=== PATIENT | female | born 1970 | race Caucasian/White ===

== ENCOUNTER 2021-12-26 08:26 | Inpatient (IN) | payer MEDICARE, BC ==
[2021-12-26] MEDS ORDERED: methylPREDNISolone Sod Succ/PF 125 MG/2 ML VIAL ONE (08:35)
[2021-12-26] MEDS ORDERED: Magnesium 2 GM/50 ML BAG (IN WATER) ONE (08:35)
[2021-12-26] MEDS ORDERED: Albuterol Sulfate 2.5 mg/3 ml Neb ONE ×2 (08:39→09:52)
[2021-12-26 08:46] LABS: Analyzer IN Cardio ER; Base Excess (BEa) 21.8 mEq/L (-2.0 to +3.0); Calcium, Ionized (arterial) 1.14 mmol/L (1.12-1.30); Carboxyhemoglobin (COHb) 0.6 gm% (0.0-3.0); Hemoglobin (Hb) 11.9 g/dL (12.0-16.0); O2 Tension (PaO2), arterial 193.3 mmHg (80.0-100.0); Potassium - ABG Lab 4.46 mmol/L (3.70-5.30)
[2021-12-26] MEDS ORDERED: Rocuronium Bromide 10 MG/ML (10ML VIAL) ONE (08:46)
[2021-12-26 08:47] LABS: CO2 Tension 132.2 mmHg (35.0-45.0); Puncture Site LRA; pH, Arterial 7.24 (7.35-7.45)
[2021-12-26 08:51] LABS: #Lymphocytes 0.4 thou/uL (1.20-3.40); #Monocytes 0.7 thou/uL (0.11-0.59); #Neutrophils 9.9 thou/uL (1.40-6.50); %Eosinophils 0.2 % (0.0-10.0); %Lymphocytes 3.3 % (21.0-51.0); %Monocytes 6.2 % (0.0-10.0); %Neutrophils 90.3 % (42.0-75.0); Hemoglobin 11.3 g/dL (12.0-16.0); Mean Corpuscular HGB CONC 31.1 g/dL (32.0-36.0); Mean Corpuscular Hemoglobin 30.1 pg (27.0-31.0); Mean Corpuscular Volume 96.8 fL (78.0-98.0); Mean Platelet Volume 5.1 fL (7.4-10.4); Platelet Count 265 thou/uL (130-400); RBC Distribution Width 12.7 % (11.5-14.5); Red Blood Cell (RBC) Count 3.76 mill/uL (4.20-5.40); White Blood Cell (WBC) Count 10.9 thou/uL (4.8-10.8)
[2021-12-26 09:12] LABS: ALT (SGPT) 24 U/L (8-55); AST (SGOT) 23 U/L (5-34); Albumin 3.3 g/dL (3.5-5.0); Alkaline Phosphatase 185 U/L (40-110); BUN (Urea Nitrogen) 5 mg/dL (9.8-20.1); Bilirubin, Total 0.2 mg/dL (0.2-1.2); Calc. Creatinine Clearance 0 mL/min (70-130); Globulin 3.5 g/dL (2.4-3.5); Glucose 133 mg/dL (70-105); Protein, Total 6.8 g/dL (6.0-8.3)
[2021-12-26 09:15] LABS: Actual Bicarbonate (HCO3a) 43.1 mEq/L (22-28); Analyzer IN Cardio ER; CO2 Tension 59.2 mmHg (35.0-45.0); Calcium, Ionized (arterial) 1.09 mmol/L (1.12-1.30); Carboxyhemoglobin (COHb) 0.4 gm% (0.0-3.0); Hemoglobin (Hb) 11.3 g/dL (12.0-16.0); Potassium - ABG Lab 4.55 mmol/L (3.70-5.30); pH, Arterial 7.48 (7.35-7.45)
[2021-12-26 09:17] LABS: Puncture Site RRA
[2021-12-26] MEDS ORDERED: Fentanyl 100 MCG/2 ML VIAL ONE ×2 (09:20→09:41)
[2021-12-26 09:21] LABS: Anion Gap 16 mmol/L (10-20); Chloride 79 mmol/L (98-107); Potassium 4.7 mmol/L (3.5-5.1); Sodium 131 mmol/L (136-145)
[2021-12-26 09:24] LABS: Carbon Dioxide 41 mmol/L (22-29)
[2021-12-26] MEDS ORDERED: Propofol 1,000 MG/100 ML VIAL IV ONE (09:24)
[2021-12-26] MEDS ORDERED: fentaNYL Citrate/PF 2,000 MCG in Sodium Chloride 0.9% 60 ML IV SCH (09:30)
[2021-12-26 09:36] LABS: CKMB 8.1 ng/mL (0-6.6)
[2021-12-26 10:50] LABS: SARS-CoV-2 NAA Rapid Test Not Detected (NotDetected)
[2021-12-26] MEDS ORDERED: Cefepime 2 GM VIAL ONE (11:19)
[2021-12-26] MEDS ORDERED: Albuterol Sulfate 2.5 mg/3 ml Neb NEB PRN (12:00)
[2021-12-26] MEDS ORDERED: Ventilator Sedation Protocol 1 EACH FS SCH (12:00)
[2021-12-26] MEDS ORDERED: methylPREDNISolone Sod Succ 40 MG VIAL IVP SCH (12:00)
[2021-12-26] MEDS ORDERED: Vancomycin HCl 1.75 GM in Sodium Chloride 0.9% 500 ML IVPB SCH (12:00)
[2021-12-26] MEDS ORDERED: Fentanyl BOLUS 250 ML IVPB PRN ×3 (12:13→12:15)
[2021-12-26] MEDS ORDERED: DISCONTINUE PREVIOUS NARCOTIC PAIN MEDICATIONS AND BENZODIAZEPINES FS SCH (12:15)
[2021-12-26] MEDS ORDERED: Morphine 2 MG/ML VIAL SLOW IVP PRN (12:15)
[2021-12-26] MEDS ORDERED: Fentanyl CADD 100 ML IV SCH (12:15)
[2021-12-26] MEDS ORDERED: Morphine 4 MG/ML VIAL SLOW IVP PRN (12:15)
[2021-12-26] MEDS ORDERED: Propofol BOLUS 1,000 MG/100 ML VIAL IV PRN (12:15)
[2021-12-26] MEDS: Azithromycin 500 MG in Sodium Chloride 0.9% 250 ML 250 ML IVPB SCH (13:07)
[2021-12-26 13:21] LABS: Troponin I 0.043 ng/mL (< 0.028)
[2021-12-26] MEDS: methylPREDNISolone Sod Succ 40 MG VIAL IVP SCH ×2 (15:18→21:53)
[2021-12-26 15:29] LABS: Troponin I 0.036 ng/mL (< 0.028)
[2021-12-26] MEDS: carBAMazepine 200 MG TAB PO SCH (18:20)
[2021-12-26] MEDS: Mometasone 200 MCG/Formoterol 5 MCG 120 PUFF INHALER INH SCH (18:47)
[2021-12-26] MEDS ORDERED: Vancomycin 1 GM in Premix Bag 1 BAG IVPB SCH (21:00)
[2021-12-26] MEDS: Cefepime 1 GM in Sodium Chloride 0.9% 100 ML IVPB SCH (21:52)
[2021-12-26] MEDS: Propofol 1,000 MG/100 ML VIAL IV PRN (21:53)
[2021-12-26] MEDS: Heparin 5,000 UNITS/ML VIAL SC SCH (21:53)
[2021-12-26] MEDS ORDERED: Vancomycin HCl 1.5 GM in Sodium Chloride 0.9% 250 ML 300 ML IVPB SCH (23:59)
[2021-12-27] MEDS ORDERED: Sodium Chloride 0.9% 1,000 ML IV SCH (01:15)
[2021-12-27 04:32] LABS: ALT (SGPT) 17 U/L (8-55); AST (SGOT) 19 U/L (5-34); Albumin 2.7 g/dL (3.5-5.0); Alkaline Phosphatase 124 U/L (40-110); BUN (Urea Nitrogen) 12 mg/dL (9.8-20.1); Bilirubin, Total 0.2 mg/dL (0.2-1.2); Calc. Creatinine Clearance 127 mL/min (70-130); Calcium 8.7 mg/dL (7.8-10.44); Globulin 2.6 g/dL (2.4-3.5); Glucose 127 mg/dL (70-105); Magnesium 1.8 mg/dL (1.6-2.6); Protein, Total 5.3 g/dL (6.0-8.3)
[2021-12-27 04:41] LABS: Chloride 86 mmol/L (98-107)
[2021-12-27 04:42] LABS: Potassium 4.9 mmol/L (3.5-5.1); Sodium 132 mmol/L (136-145)
[2021-12-27 04:44] LABS: Anion Gap 11 mmol/L (10-20); Carbon Dioxide 40 mmol/L (22-29)
[2021-12-27] MEDS: methylPREDNISolone Sod Succ 40 MG VIAL IVP SCH ×3 (05:36→21:46)
[2021-12-27] MEDS: Mometasone 200 MCG/Formoterol 5 MCG 120 PUFF INHALER INH SCH ×2 (06:23→19:08)
[2021-12-27 07:56] LABS: Hemoglobin 9.3 g/dL (12.0-16.0); Mean Corpuscular HGB CONC 32.7 g/dL (32.0-36.0); Mean Corpuscular Hemoglobin 31.7 pg (27.0-31.0); Mean Corpuscular Volume 96.9 fL (78.0-98.0); Mean Platelet Volume 5.6 fL (7.4-10.4); Platelet Count 229 thou/uL (130-400); RBC Distribution Width 12.8 % (11.5-14.5); Red Blood Cell (RBC) Count 2.93 mill/uL (4.20-5.40); White Blood Cell (WBC) Count 8.9 thou/uL (4.8-10.8)
[2021-12-27 08:08] LABS: Base Excess (BEa) 15.7 mEq/L (-2.0 to +3.0); Calcium, Ionized (arterial) 1.09 mmol/L (1.12-1.30); Carboxyhemoglobin (COHb) 0.7 gm% (0.0-3.0); Hemoglobin (Hb) 9.5 g/dL (12.0-16.0); pH, Arterial 7.44 (7.35-7.45)
[2021-12-27 08:13] LABS: CO2 Tension 62.8 mmHg (35.0-45.0); Puncture Site RRA
[2021-12-27] MEDS ORDERED: Sodium Chloride 0.9% 500 ML IV SCH (08:45)
[2021-12-27] MEDS: Propofol 1,000 MG/100 ML VIAL IV PRN ×2 (08:59→16:58)
[2021-12-27] MEDS: Pantoprazole 40 MG VIAL IVP SCH (09:00)
[2021-12-27] MEDS ORDERED: Nebivolol HCl 5 MG TAB PO SCH (09:00)
[2021-12-27] MEDS: Cefepime 1 GM in Sodium Chloride 0.9% 100 ML IVPB SCH (09:00)
[2021-12-27] MEDS: Heparin 5,000 UNITS/ML VIAL SC SCH ×2 (09:01→21:45)
[2021-12-27] MEDS: carBAMazepine 200 MG TAB PO SCH ×2 (09:02→19:04)
[2021-12-27] MEDS: Amiodarone 200 MG TAB PO SCH (09:04)
[2021-12-27 09:12] LABS: Band 8 % (5-11); Eosinophils 1 % (0-10); Lymphocytes 10 % (21-51); MDiff Complete? YES; Monocytes 6 % (0-10); Neutrophil 75 % (42-75); Platelet Morphology Comment Appears Adequate; Polychromasia SLIGHT = 2-3 cells (100X) (0-2/hpf)
[2021-12-27] MEDS: NIFEdipine XL 60 MG TAB PO SCH (09:46)
[2021-12-27] MEDS: Azithromycin 500 MG in Sodium Chloride 0.9% 250 ML 250 ML IVPB SCH (12:14)
[2021-12-27] MEDS: Vancomycin HCl 1.25 GM in Sodium Chloride 0.9% 250 ML 250 ML IVPB SCH (12:14)
[2021-12-27] MEDS: Cefepime 2 GM in Sodium Chloride 0.9% 100 ML IVPB SCH (21:45)
[2021-12-28] MEDS: Vancomycin HCl 1.25 GM in Sodium Chloride 0.9% 250 ML 250 ML IVPB SCH ×3 (00:34→23:07)
[2021-12-28] MEDS: Propofol 1,000 MG/100 ML VIAL IV PRN ×2 (00:48→21:53)
[2021-12-28 04:47] LABS: ALT (SGPT) 19 U/L (8-55); AST (SGOT) 20 U/L (5-34); Albumin 2.8 g/dL (3.5-5.0); Alkaline Phosphatase 133 U/L (40-110); Anion Gap 12 mmol/L (10-20); BUN (Urea Nitrogen) 18 mg/dL (9.8-20.1); Bilirubin, Total 0.2 mg/dL (0.2-1.2); Calc. Creatinine Clearance 132 mL/min (70-130); Calcium 8.7 mg/dL (7.8-10.44); Carbon Dioxide 36 mmol/L (22-29); Chloride 91 mmol/L (98-107); Globulin 2.9 g/dL (2.4-3.5); Glucose 140 mg/dL (70-105); Magnesium 1.9 mg/dL (1.6-2.6); Potassium 4.4 mmol/L (3.5-5.1); Protein, Total 5.7 g/dL (6.0-8.3); Sodium 135 mmol/L (136-145)
[2021-12-28 05:10] LABS: Band 5 % (5-11); Hemoglobin 10.1 g/dL (12.0-16.0); Lymphocytes 3 % (21-51); MDiff Complete? YES; Mean Corpuscular HGB CONC 32.5 g/dL (32.0-36.0); Mean Corpuscular Hemoglobin 31.6 pg (27.0-31.0); Mean Corpuscular Volume 97.2 fL (78.0-98.0); Mean Platelet Volume 5.6 fL (7.4-10.4); Monocytes 3 % (0-10); Neutrophil 89 % (42-75); Platelet Count 187 thou/uL (130-400); Red Blood Cell (RBC) Count 3.19 mill/uL (4.20-5.40); White Blood Cell (WBC) Count 4.5 thou/uL (4.8-10.8)
[2021-12-28] MEDS: methylPREDNISolone Sod Succ 40 MG VIAL IVP SCH ×3 (06:24→21:20)
[2021-12-28] MEDS: Mometasone 200 MCG/Formoterol 5 MCG 120 PUFF INHALER INH SCH ×2 (06:58→18:50)
[2021-12-28] MEDS: Amiodarone 200 MG TAB PO SCH (09:18)
[2021-12-28] MEDS: NIFEdipine XL 60 MG TAB PO SCH (09:18)
[2021-12-28] MEDS: carBAMazepine 200 MG TAB PO SCH ×2 (09:18→17:59)
[2021-12-28] MEDS: Cefepime 2 GM in Sodium Chloride 0.9% 100 ML IVPB SCH ×2 (09:19→21:21)
[2021-12-28] MEDS: Pantoprazole 40 MG VIAL IVP SCH (09:19)
[2021-12-28] MEDS: Heparin 5,000 UNITS/ML VIAL SC SCH ×2 (09:19→21:20)
[2021-12-28] MEDS: Lorazepam 2 MG/ML VIAL SLOW IVP PRN (10:09)
[2021-12-28] MEDS: Azithromycin 500 MG in Sodium Chloride 0.9% 250 ML 250 ML IVPB SCH (11:59)
[2021-12-28] MEDS: busPIRone HCl 5 MG TAB PER TUBE SCH ×2 (15:21→21:20)
[2021-12-28] MEDS: carBAMazepine 20 MG/ML ORAL SUSP PER TUBE SCH (17:58)
[2021-12-28 23:53] LABS: Vancomycin, Trough 24.2 ug/mL
[2021-12-29] MEDS: Lorazepam 2 MG/ML VIAL SLOW IVP PRN ×2 (02:03→20:53)
[2021-12-29 04:56] LABS: ALT (SGPT) 16 U/L (8-55); AST (SGOT) 16 U/L (5-34); Albumin 2.8 g/dL (3.5-5.0); Alkaline Phosphatase 116 U/L (40-110); Anion Gap 10 mmol/L (10-20); BUN (Urea Nitrogen) 19 mg/dL (9.8-20.1); Bilirubin, Total 0.2 mg/dL (0.2-1.2); Calc. Creatinine Clearance 131 mL/min (70-130); Calcium 8.5 mg/dL (7.8-10.44); Carbon Dioxide 36 mmol/L (22-29); Chloride 91 mmol/L (98-107); Globulin 2.6 g/dL (2.4-3.5); Glucose 122 mg/dL (70-105); Magnesium 1.9 mg/dL (1.6-2.6); Potassium 4.1 mmol/L (3.5-5.1); Protein, Total 5.4 g/dL (6.0-8.3); Sodium 133 mmol/L (136-145)
[2021-12-29] MEDS: methylPREDNISolone Sod Succ 40 MG VIAL IVP SCH ×3 (05:09→20:53)
[2021-12-29 05:34] LABS: Band 9 % (5-11); Hemoglobin 10.5 g/dL (12.0-16.0); Lymphocytes 6 % (21-51); MDiff Complete? YES; Mean Corpuscular HGB CONC 32.9 g/dL (32.0-36.0); Mean Corpuscular Volume 97.4 fL (78.0-98.0); Mean Platelet Volume 5.9 fL (7.4-10.4); Monocytes 5 % (0-10); Neutrophil 80 % (42-75); Platelet Count 153 thou/uL (130-400); RBC Distribution Width 13.1 % (11.5-14.5); Red Blood Cell (RBC) Count 3.29 mill/uL (4.20-5.40); White Blood Cell (WBC) Count 3.2 thou/uL (4.8-10.8)
[2021-12-29] MEDS ORDERED: Vancomycin 1 GM in Premix Bag 1 BAG IVPB SCH (06:00)
[2021-12-29] MEDS: Propofol 1,000 MG/100 ML VIAL IV PRN ×3 (06:00→23:35)
[2021-12-29] MEDS: Mometasone 200 MCG/Formoterol 5 MCG 120 PUFF INHALER INH SCH ×2 (07:11→19:06)
[2021-12-29] MEDS: Amiodarone 200 MG TAB PO SCH ×2 (08:16→09:41)
[2021-12-29] MEDS: NIFEdipine XL 60 MG TAB PO SCH (09:38)
[2021-12-29] MEDS: Atorvastatin Calcium 20 MG TAB PER TUBE SCH (09:41)
[2021-12-29] MEDS: Heparin 5,000 UNITS/ML VIAL SC SCH ×2 (09:41→20:49)
[2021-12-29] MEDS: Cefepime 2 GM in Sodium Chloride 0.9% 100 ML IVPB SCH (09:41)
[2021-12-29] MEDS: carBAMazepine 20 MG/ML ORAL SUSP PER TUBE SCH ×2 (09:42→20:52)
[2021-12-29] MEDS: Amiodarone 200 MG TAB PER TUBE SCH (09:45)
[2021-12-29] MEDS: Lansoprazole 3 MG/ML ORAL SUSPENSION PER TUBE SCH (09:55)
[2021-12-29] MEDS: busPIRone HCl 5 MG TAB PER TUBE SCH ×3 (09:55→20:49)
[2021-12-29] MEDS: Azithromycin 500 MG in Sodium Chloride 0.9% 250 ML 250 ML IVPB SCH (11:26)
[2021-12-29] MEDS: Scopolamine 1.5 mg/72 hour Patch TOP SCH (11:28)
[2021-12-29] MEDS ORDERED: Labetalol HCl 100 MG/20 ML VIAL SLOW IVP PRN (11:41)
[2021-12-30] MEDS: methylPREDNISolone Sod Succ 40 MG VIAL IVP SCH ×3 (05:05→21:01)
[2021-12-30 05:59] LABS: Band 4 % (5-11); Hemoglobin 9.2 g/dL (12.0-16.0); Lymphocytes 3 % (21-51); MDiff Complete? YES; Mean Corpuscular HGB CONC 32.4 g/dL (32.0-36.0); Mean Corpuscular Hemoglobin 31.6 pg (27.0-31.0); Mean Corpuscular Volume 97.6 fL (78.0-98.0); Mean Platelet Volume 5.4 fL (7.4-10.4); Monocytes 10 % (0-10); Neutrophil 83 % (42-75); Platelet Count 175 thou/uL (130-400); RBC Distribution Width 12.8 % (11.5-14.5); White Blood Cell (WBC) Count 4.2 thou/uL (4.8-10.8)
[2021-12-30 06:10] LABS: ALT (SGPT) 12 U/L (8-55); AST (SGOT) 14 U/L (5-34); Albumin 3.1 g/dL (3.5-5.0); Alkaline Phosphatase 118 U/L (40-110); Anion Gap 11 mmol/L (10-20); BUN (Urea Nitrogen) 18 mg/dL (9.8-20.1); Bilirubin, Total 0.2 mg/dL (0.2-1.2); Calc. Creatinine Clearance 144 mL/min (70-130); Calcium 8.8 mg/dL (7.8-10.44); Carbon Dioxide 37 mmol/L (22-29); Chloride 94 mmol/L (98-107); Globulin 2.5 g/dL (2.4-3.5); Glucose 106 mg/dL (70-105); Potassium 4.1 mmol/L (3.5-5.1); Protein, Total 5.6 g/dL (6.0-8.3); Sodium 138 mmol/L (136-145)
[2021-12-30] MEDS: Mometasone 200 MCG/Formoterol 5 MCG 120 PUFF INHALER INH SCH ×2 (06:45→19:33)
[2021-12-30] MEDS: Atorvastatin Calcium 20 MG TAB PER TUBE SCH (08:53)
[2021-12-30] MEDS: Heparin 5,000 UNITS/ML VIAL SC SCH ×2 (08:54→21:00)
[2021-12-30] MEDS: Leflunomide 10 mg Tablet PO SCH (08:54)
[2021-12-30] MEDS: carBAMazepine 20 MG/ML ORAL SUSP PER TUBE SCH ×2 (08:55→21:01)
[2021-12-30] MEDS: Lansoprazole 3 MG/ML ORAL SUSPENSION PER TUBE SCH (08:55)
[2021-12-30] MEDS: busPIRone HCl 5 MG TAB PER TUBE SCH ×3 (08:55→21:01)
[2021-12-30] MEDS: Amiodarone 200 MG TAB PER TUBE SCH (08:56)
[2021-12-30] MEDS ORDERED: Amlodipine 5 MG TAB PER TUBE SCH (14:30)
[2021-12-30] MEDS: Saccharomyces boulardii 250 MG CAP PER TUBE SCH (14:47)
[2021-12-30] MEDS: NIFEdipine XL 60 MG TAB PO SCH (17:33)
[2021-12-30] MEDS: Lorazepam 2 MG/ML VIAL SLOW IVP PRN (19:48)
[2021-12-31] MEDS: Propofol 1,000 MG/100 ML VIAL IV PRN (02:44)
[2021-12-31] MEDS: methylPREDNISolone Sod Succ 40 MG VIAL IVP SCH ×3 (06:03→21:03)
[2021-12-31 06:52] LABS: Band 7 % (5-11); Hemoglobin 9.1 g/dL (12.0-16.0); Lymphocytes 12 % (21-51); MDiff Complete? YES; Mean Corpuscular HGB CONC 32.4 g/dL (32.0-36.0); Mean Corpuscular Hemoglobin 31.7 pg (27.0-31.0); Mean Corpuscular Volume 98.1 fL (78.0-98.0); Mean Platelet Volume 5.7 fL (7.4-10.4); Monocytes 5 % (0-10); Neutrophil 76 % (42-75); Platelet Count 157 thou/uL (130-400); Platelet Morphology Comment Appears Adequate; RBC Distribution Width 12.8 % (11.5-14.5); Red Blood Cell (RBC) Count 2.85 mill/uL (4.20-5.40); White Blood Cell (WBC) Count 3.2 thou/uL (4.8-10.8)
[2021-12-31 06:57] LABS: ALT (SGPT) 14 U/L (8-55); AST (SGOT) 16 U/L (5-34); Albumin 2.8 g/dL (3.5-5.0); Alkaline Phosphatase 107 U/L (40-110); Anion Gap 11 mmol/L (10-20); BUN (Urea Nitrogen) 19 mg/dL (9.8-20.1); Bilirubin, Total 0.3 mg/dL (0.2-1.2); Calc. Creatinine Clearance 151 mL/min (70-130); Calcium 8.7 mg/dL (7.8-10.44); Carbon Dioxide 34 mmol/L (22-29); Chloride 94 mmol/L (98-107); Globulin 2.6 g/dL (2.4-3.5); Glucose 108 mg/dL (70-105); Potassium 4.5 mmol/L (3.5-5.1); Protein, Total 5.4 g/dL (6.0-8.3); Sodium 134 mmol/L (136-145)
[2021-12-31] MEDS: Mometasone 200 MCG/Formoterol 5 MCG 120 PUFF INHALER INH SCH ×2 (07:24→19:05)
[2021-12-31] MEDS: Amiodarone 200 MG TAB PER TUBE SCH ×2 (10:52→10:53)
[2021-12-31] MEDS: Lansoprazole 3 MG/ML ORAL SUSPENSION PER TUBE SCH (10:52)
[2021-12-31] MEDS: Amlodipine 5 MG TAB PER TUBE SCH (10:52)
[2021-12-31] MEDS: busPIRone HCl 5 MG TAB PER TUBE SCH ×3 (10:52→21:03)
[2021-12-31] MEDS: Leflunomide 10 mg Tablet PO SCH (10:52)
[2021-12-31] MEDS: Heparin 5,000 UNITS/ML VIAL SC SCH ×2 (10:53→21:03)
[2021-12-31] MEDS: Atorvastatin Calcium 20 MG TAB PER TUBE SCH (10:55)
[2021-12-31] MEDS: Saccharomyces boulardii 250 MG CAP PER TUBE SCH (10:56)
[2021-12-31] MEDS: carBAMazepine 20 MG/ML ORAL SUSP PER TUBE SCH ×2 (10:58→21:02)
[2022-01-01 04:11] LABS: Hemoglobin 9.3 g/dL (12.0-16.0); Hypochromia SLIGHT = 6-15 cells (100X) (0-5/hpf); Lymphocytes 13 % (21-51); MDiff Complete? YES; Mean Corpuscular HGB CONC 33.2 g/dL (32.0-36.0); Mean Corpuscular Volume 96.2 fL (78.0-98.0); Monocytes 6 % (0-10); Neutrophil 81 % (42-75); Platelet Count 148 thou/uL (130-400); Platelet Morphology Comment Appears Adequate; RBC Distribution Width 12.7 % (11.5-14.5); Red Blood Cell (RBC) Count 2.92 mill/uL (4.20-5.40); White Blood Cell (WBC) Count 3.9 thou/uL (4.8-10.8)
[2022-01-01 04:20] LABS: ALT (SGPT) 11 U/L (8-55); AST (SGOT) 14 U/L (5-34); Albumin 3.1 g/dL (3.5-5.0); Alkaline Phosphatase 105 U/L (40-110); Anion Gap 10 mmol/L (10-20); BUN (Urea Nitrogen) 17 mg/dL (9.8-20.1); Bilirubin, Total 0.3 mg/dL (0.2-1.2); Calc. Creatinine Clearance 151 mL/min (70-130); Calcium 8.7 mg/dL (7.8-10.44); Carbon Dioxide 34 mmol/L (22-29); Chloride 93 mmol/L (98-107); Globulin 2.3 g/dL (2.4-3.5); Glucose 116 mg/dL (70-105); Potassium 4.4 mmol/L (3.5-5.1); Protein, Total 5.4 g/dL (6.0-8.3); Sodium 133 mmol/L (136-145)
[2022-01-01] MEDS: methylPREDNISolone Sod Succ 40 MG VIAL IVP SCH ×3 (05:38→21:12)
[2022-01-01] MEDS: Mometasone 200 MCG/Formoterol 5 MCG 120 PUFF INHALER INH SCH ×2 (07:51→19:31)
[2022-01-01] MEDS: Saccharomyces boulardii 250 MG CAP PER TUBE SCH (08:50)
[2022-01-01] MEDS: carBAMazepine 20 MG/ML ORAL SUSP PER TUBE SCH ×2 (08:50→21:12)
[2022-01-01] MEDS: Amlodipine 5 MG TAB PER TUBE SCH (08:51)
[2022-01-01] MEDS: Amiodarone 200 MG TAB PER TUBE SCH (08:52)
[2022-01-01] MEDS: Heparin 5,000 UNITS/ML VIAL SC SCH ×2 (08:53→21:13)
[2022-01-01] MEDS: Atorvastatin Calcium 20 MG TAB PER TUBE SCH (08:53)
[2022-01-01] MEDS: busPIRone HCl 5 MG TAB PER TUBE SCH ×3 (08:53→21:13)
[2022-01-01] MEDS: Lansoprazole 3 MG/ML ORAL SUSPENSION PER TUBE SCH (08:55)
[2022-01-01] MEDS: Leflunomide 10 mg Tablet PO SCH (09:53)
[2022-01-01] MEDS: Scopolamine 1.5 mg/72 hour Patch TOP SCH (13:32)
[2022-01-02 05:50] LABS: Band 1 % (5-11); Hemoglobin 10.4 g/dL (12.0-16.0); Lymphocytes 14 % (21-51); MDiff Complete? YES; Mean Corpuscular HGB CONC 33.4 g/dL (32.0-36.0); Mean Corpuscular Hemoglobin 32.4 pg (27.0-31.0); Mean Corpuscular Volume 96.9 fL (78.0-98.0); Mean Platelet Volume 5.8 fL (7.4-10.4); Monocytes 14 % (0-10); Neutrophil 71 % (42-75); Platelet Count 155 thou/uL (130-400); Platelet Morphology Comment Appears Adequate; RBC Distribution Width 12.8 % (11.5-14.5); Red Blood Cell (RBC) Count 3.21 mill/uL (4.20-5.40); White Blood Cell (WBC) Count 3.3 thou/uL (4.8-10.8)
[2022-01-02 06:11] LABS: ALT (SGPT) 12 U/L (8-55); AST (SGOT) 13 U/L (5-34); Albumin 3.1 g/dL (3.5-5.0); Alkaline Phosphatase 108 U/L (40-110); Anion Gap 10 mmol/L (10-20); BUN (Urea Nitrogen) 14 mg/dL (9.8-20.1); Bilirubin, Total 0.3 mg/dL (0.2-1.2); Calc. Creatinine Clearance 171 mL/min (70-130); Carbon Dioxide 35 mmol/L (22-29); Chloride 92 mmol/L (98-107); Globulin 2.4 g/dL (2.4-3.5); Glucose 99 mg/dL (70-105); Potassium 4.1 mmol/L (3.5-5.1); Protein, Total 5.5 g/dL (6.0-8.3); Sodium 133 mmol/L (136-145)
[2022-01-02] MEDS: methylPREDNISolone Sod Succ 40 MG VIAL IVP SCH ×3 (06:11→21:00)
[2022-01-02] MEDS: Mometasone 200 MCG/Formoterol 5 MCG 120 PUFF INHALER INH SCH ×2 (07:30→18:37)
[2022-01-02] MEDS: busPIRone HCl 5 MG TAB PER TUBE SCH ×3 (09:17→21:00)
[2022-01-02] MEDS: carBAMazepine 20 MG/ML ORAL SUSP PER TUBE SCH ×2 (09:17→21:01)
[2022-01-02] MEDS: Lansoprazole 3 MG/ML ORAL SUSPENSION PER TUBE SCH (09:18)
[2022-01-02] MEDS: Amlodipine 5 MG TAB PER TUBE SCH (09:19)
[2022-01-02] MEDS: Leflunomide 10 mg Tablet PO SCH (09:19)
[2022-01-02] MEDS: Atorvastatin Calcium 20 MG TAB PER TUBE SCH (09:19)
[2022-01-02] MEDS: Saccharomyces boulardii 250 MG CAP PER TUBE SCH (09:19)
[2022-01-02] MEDS: Amiodarone 200 MG TAB PER TUBE SCH (09:19)
[2022-01-02] MEDS: Heparin 5,000 UNITS/ML VIAL SC SCH ×2 (09:19→21:00)
[2022-01-02 15:27] LABS: SARS-CoV-2 PCR by NAA Not Detected (NotDetected)
[2022-01-03 06:33] LABS: Hemoglobin 10.6 g/dL (12.0-16.0); Hypochromia SLIGHT = 6-15 cells (100X) (0-5/hpf); Lymphocytes 12 % (21-51); MDiff Complete? YES; Mean Corpuscular HGB CONC 35.5 g/dL (32.0-36.0); Mean Corpuscular Hemoglobin 34.4 pg (27.0-31.0); Mean Corpuscular Volume 96.9 fL (78.0-98.0); Mean Platelet Volume 5.8 fL (7.4-10.4); Monocytes 16 % (0-10); Neutrophil 72 % (42-75); Platelet Count 160 thou/uL (130-400); Platelet Morphology Comment Appears Adequate; RBC Distribution Width 12.9 % (11.5-14.5); Red Blood Cell (RBC) Count 3.08 mill/uL (4.20-5.40); White Blood Cell (WBC) Count 4.2 thou/uL (4.8-10.8)
[2022-01-03 06:44] LABS: ALT (SGPT) 14 U/L (8-55); AST (SGOT) 15 U/L (5-34); Albumin 3.1 g/dL (3.5-5.0); Alkaline Phosphatase 104 U/L (40-110); Anion Gap 10 mmol/L (10-20); BUN (Urea Nitrogen) 11 mg/dL (9.8-20.1); Bilirubin, Total 0.3 mg/dL (0.2-1.2); Calc. Creatinine Clearance 149 mL/min (70-130); Calcium 8.8 mg/dL (7.8-10.44); Carbon Dioxide 36 mmol/L (22-29); Chloride 92 mmol/L (98-107); Globulin 2.3 g/dL (2.4-3.5); Glucose 100 mg/dL (70-105); Potassium 3.6 mmol/L (3.5-5.1); Protein, Total 5.4 g/dL (6.0-8.3); Sodium 134 mmol/L (136-145)
[2022-01-03] MEDS: Mometasone 200 MCG/Formoterol 5 MCG 120 PUFF INHALER INH SCH ×2 (07:19→18:54)
[2022-01-03] MEDS: Amlodipine 5 MG TAB PER TUBE SCH (08:39)
[2022-01-03] MEDS: Saccharomyces boulardii 250 MG CAP PER TUBE SCH (08:41)
[2022-01-03] MEDS: busPIRone HCl 5 MG TAB PER TUBE SCH ×3 (08:41→21:26)
[2022-01-03] MEDS: Atorvastatin Calcium 20 MG TAB PER TUBE SCH (08:41)
[2022-01-03] MEDS: Amiodarone 200 MG TAB PER TUBE SCH (08:41)
[2022-01-03] MEDS: Heparin 5,000 UNITS/ML VIAL SC SCH ×2 (08:50→21:26)
[2022-01-03] MEDS: methylPREDNISolone Sod Succ 40 MG VIAL IVP SCH ×2 (08:50→21:27)
[2022-01-03] MEDS: Leflunomide 10 mg Tablet PO SCH (08:51)
[2022-01-03] MEDS: Lansoprazole 3 MG/ML ORAL SUSPENSION PER TUBE SCH (08:56)
[2022-01-03] MEDS: carBAMazepine 20 MG/ML ORAL SUSP PER TUBE SCH ×2 (08:57→21:29)
[2022-01-03] MEDS ORDERED: Acetaminophen 325 MG TAB PO PRN (20:35)
[2022-01-04 04:15] LABS: Band 5 % (5-11); Eosinophils 2 % (0-10); Hemoglobin 10.6 g/dL (12.0-16.0); Lymphocytes 3 % (21-51); MDiff Complete? YES; Mean Corpuscular HGB CONC 32.6 g/dL (32.0-36.0); Mean Corpuscular Hemoglobin 31.4 pg (27.0-31.0); Mean Corpuscular Volume 96.6 fL (78.0-98.0); Mean Platelet Volume 5.9 fL (7.4-10.4); Monocytes 5 % (0-10); Neutrophil 85 % (42-75); Platelet Count 174 thou/uL (130-400); Platelet Morphology Comment Appears Adequate; RBC Distribution Width 12.9 % (11.5-14.5); Red Blood Cell (RBC) Count 3.38 mill/uL (4.20-5.40); White Blood Cell (WBC) Count 4.8 thou/uL (4.8-10.8)
[2022-01-04 04:48] LABS: ALT (SGPT) 16 U/L (8-55); AST (SGOT) 18 U/L (5-34); Albumin 3.3 g/dL (3.5-5.0); Alkaline Phosphatase 115 U/L (40-110); Anion Gap 11 mmol/L (10-20); BUN (Urea Nitrogen) 10 mg/dL (9.8-20.1); Bilirubin, Total 0.3 mg/dL (0.2-1.2); Calc. Creatinine Clearance 152 mL/min (70-130); Calcium 8.9 mg/dL (7.8-10.44); Carbon Dioxide 36 mmol/L (22-29); Chloride 92 mmol/L (98-107); Globulin 2.6 g/dL (2.4-3.5); Glucose 146 mg/dL (70-105); Potassium 3.8 mmol/L (3.5-5.1); Protein, Total 5.9 g/dL (6.0-8.3); Sodium 135 mmol/L (136-145)
[2022-01-04] MEDS: Mometasone 200 MCG/Formoterol 5 MCG 120 PUFF INHALER INH SCH ×2 (07:37→19:00)
[2022-01-04] MEDS: Amiodarone 200 MG TAB PER TUBE SCH (08:48)
[2022-01-04] MEDS: Leflunomide 10 mg Tablet PO SCH (08:48)
[2022-01-04] MEDS: Saccharomyces boulardii 250 MG CAP PER TUBE SCH (08:49)
[2022-01-04] MEDS: busPIRone HCl 5 MG TAB PER TUBE SCH ×2 (08:49→16:43)
[2022-01-04] MEDS: Amlodipine 5 MG TAB PER TUBE SCH (08:49)
[2022-01-04] MEDS: Atorvastatin Calcium 20 MG TAB PER TUBE SCH (08:49)
[2022-01-04] MEDS: Heparin 5,000 UNITS/ML VIAL SC SCH ×2 (08:49→20:35)
[2022-01-04] MEDS: methylPREDNISolone Sod Succ 40 MG VIAL IVP SCH ×2 (08:49→20:34)
[2022-01-04] MEDS: carBAMazepine 20 MG/ML ORAL SUSP PER TUBE SCH ×2 (12:04→13:20)
[2022-01-04] MEDS: Scopolamine 1.5 mg/72 hour Patch TOP SCH (13:20)
[2022-01-04] MEDS: Lansoprazole 3 MG/ML ORAL SUSPENSION PER TUBE SCH (13:20)
[2022-01-04] MEDS: carBAMazepine 100 mg Chewable Tablet PO SCH (20:35)
[2022-01-04] MEDS: busPIRone HCl 5 MG TAB PO SCH (20:36)
[2022-01-05] MEDS ORDERED: Amiodarone 200 MG TAB PO SCH (09:00)
[2022-01-05] MEDS ORDERED: Saccharomyces boulardii 250 MG CAP PO SCH (09:00)
[2022-01-05] MEDS ORDERED: Atorvastatin Calcium 20 MG TAB PO SCH (09:00)
[2022-01-05] MEDS ORDERED: Amlodipine 5 MG TAB PO SCH (09:00)
[2022-01-05] MEDS ORDERED: Lansoprazole 3 MG/ML ORAL SUSPENSION PO SCH (09:00)
[2022-01-05 09:27] LABS: ALT (SGPT) 16 U/L (8-55); AST (SGOT) 19 U/L (5-34); Albumin 3.4 g/dL (3.5-5.0); Alkaline Phosphatase 116 U/L (40-110); BUN (Urea Nitrogen) 9 mg/dL (9.8-20.1); Bilirubin, Total 0.4 mg/dL (0.2-1.2); Calc. Creatinine Clearance 152 mL/min (70-130); Calcium 8.9 mg/dL (7.8-10.44); Globulin 2.4 g/dL (2.4-3.5); Glucose 92 mg/dL (70-105); Protein, Total 5.8 g/dL (6.0-8.3)
[2022-01-05 09:37] LABS: Anion Gap 10 mmol/L (10-20); Carbon Dioxide 36 mmol/L (22-29); Chloride 93 mmol/L (98-107); Potassium 3.8 mmol/L (3.5-5.1); Sodium 135 mmol/L (136-145)
[2022-01-05] MEDS: Heparin 5,000 UNITS/ML VIAL SC SCH ×2 (09:43→21:14)
[2022-01-05] MEDS: busPIRone HCl 5 MG TAB PO SCH ×3 (09:43→21:14)
[2022-01-05] MEDS: methylPREDNISolone Sod Succ 40 MG VIAL IVP SCH ×2 (09:44→21:14)
[2022-01-05] MEDS: Leflunomide 10 mg Tablet PO SCH (09:45)
[2022-01-05] MEDS: carBAMazepine 100 mg Chewable Tablet PO SCH (09:45)
[2022-01-05 10:05] LABS: Hemoglobin 10.8 g/dL (12.0-16.0); Lymphocytes 11 % (21-51); MDiff Complete? YES; Mean Corpuscular HGB CONC 33.1 g/dL (32.0-36.0); Mean Corpuscular Hemoglobin 31.9 pg (27.0-31.0); Mean Corpuscular Volume 96.4 fL (78.0-98.0); Mean Platelet Volume 5.7 fL (7.4-10.4); Monocytes 1 % (0-10); Neutrophil 81 % (42-75); Platelet Count 163 thou/uL (130-400); Platelet Morphology Comment Appears Adequate; Polychromasia SLIGHT = 2-3 cells (100X) (0-2/hpf); RBC Distribution Width 12.9 % (11.5-14.5); Reactive Lymphocytes 7 % (0-10); Red Blood Cell (RBC) Count 3.39 mill/uL (4.20-5.40); White Blood Cell (WBC) Count 5.5 thou/uL (4.8-10.8)
[2022-01-05] MEDS: Mometasone 200 MCG/Formoterol 5 MCG 120 PUFF INHALER INH SCH ×2 (11:33→19:17)
[2022-01-05 13:12] VITALS: BP 152/91
[2022-01-05 14:31] VITALS: BMI 25.0
[2022-01-05 19:53] VITALS: TEMP 97.9
== END 2022-01-05 21:40 | DRG 207 ==
LOC: ERS 08:26 → CCU 10:40 → IMCU/EMU 01-02 12:01
PROVIDERS: ADMIT Internal Medicine; ATTEND Internal Medicine
PROC: 5A1955Z Respiratory Ventilation, Greater than 96 Consecutive Hours (ICD-10-PCS; principal; 2021-12-26)
PROC: 0BH17EZ Insertion of Endotracheal Airway into Trachea, Via Natural or Artificial Opening (ICD-10-PCS; 2021-12-26)
PROC: 0DH67UZ Insertion of Feeding Device into Stomach, Via Natural or Artificial Opening (ICD-10-PCS; 2021-12-26)
PROC: 3E0G76Z Introduction of Nutritional Substance into Upper GI, Via Natural or Artificial Opening (ICD-10-PCS; 2021-12-26)
PROC: 5A09357 Assistance with Respiratory Ventilation, Less than 24 Consecutive Hours, Continuous Positive Airway Pressure (ICD-10-PCS; 2021-12-31)
DX: J96.21 Acute and chronic respiratory failure with hypoxia (principal); J15.6 Pneumonia due to other Gram-negative bacteria; J15.0 Pneumonia due to Klebsiella pneumoniae; J93.9 Pneumothorax, unspecified; E87.1 Hypo-osmolality and hyponatremia; R78.81 Bacteremia; J91.8 Pleural effusion in other conditions classified elsewhere; J44.0 Chronic obstructive pulmonary disease with (acute) lower respiratory infection; J44.1 Chronic obstructive pulmonary disease with (acute) exacerbation; J96.22 Acute and chronic respiratory failure with hypercapnia; Z20.822 Contact with and (suspected) exposure to COVID-19; M06.9 Rheumatoid arthritis, unspecified; E78.5 Hyperlipidemia, unspecified; G40.909 Epilepsy, unspecified, not intractable, without status epilepticus; F32.A Depression, unspecified; F41.9 Anxiety disorder, unspecified; Z78.1 Physical restraint status; Z88.8 Allergy status to other drugs, medicaments and biological substances; Z79.899 Other long term (current) drug therapy; Z79.51 Long term (current) use of inhaled steroids; Z86.74 Personal history of sudden cardiac arrest; I10 Essential (primary) hypertension; Y95 Nosocomial condition; I49.9 Cardiac arrhythmia, unspecified
CPT/HCPCS: 31500; 36415; 36416; 36600; 71045; 71250; 74230; 80053; 80202; 82553; 82805; 83605; 83735; 83880; 84484; 85007; 85025; 85027; 87040; 87070; 87077; 87149; 87186; 87205; 93005; 93306; 94002; 94003; 94640; 94644; 94660; 96374; 96375; 96376; C9113; J0456; J0692; J1644; J1956; J2060; J2704; J2920; J2930; J3010; J3370; J3475; J3490; J7030; J7050; J7611; J7620; U0002; U0003; U0005